=== PATIENT | female | born 1960 | race Caucasian/White ===

== ENCOUNTER 2024-03-09 09:55 | Emergency (ER) | payer OTHER, SELFPAY ==
[2024-03-09 09:57] VITALS: BP 106/61
[2024-03-09] MEDS: ZOFRAN ODT (ORALLY DISINTEGRATING) 4 MG PO (10:06)
[2024-03-09] MEDS: TYLENOL 650 MG PO (10:06)
[2024-03-09 10:14] LABS: % Basophils 0.5 % (0-2); % Eosinophils 0.8 % (0-6); % Immature Granulocytes 0.5 % (0-0.5); % Lymphocytes 14.8 % (20.5-51.1); % Monocytes 4.5 % (1.7-9.3); % Neutrophils 78.9 % (42.2-75.2); Absolute Eosinophils 0.1 10^3/uL (0-0.7); Absolute Lymphocytes 1.3 10^3/uL (1.2-3.4); Absolute Monocytes 0.4 10^3/uL (0.1-0.6); Absolute Neutrophils 6.7 10^3/uL (1.4-6.5); Hemoglobin 13.2 g/dL (12.0-16.0); Mean Corp Hgb Conc. 34.7 g/dL (33.0-37.0); Mean Corpuscular Volume 92.2 fL (81.0-99.0); Mean Platelet Volume 10.9 fL (7.4-10.4); Nucleated Red Blood Cells % 0 %; Platelet Count 234 10^3/uL (130-400); Red Blood Cell Count 4.12 10^6/uL (4.20-5.40); Red Cell Dist. Width 12.6 % (11.5-14.5); White Blood Cell Count 8.5 10^3/uL (4.8-10.8)
[2024-03-09 10:24] LABS: ALT (SGPT) 22 U/L (0-35); AST (SGOT) 28 U/L (14-36); Albumin 4.8 g/dl (3.5-5.0); Alkaline Phosphatase 93 U/L (38-126); Blood Urea Nitrogen 17 mg/dl (7-17); Calcium 9.8 mg/dl (8.4-10.2); Carbon Dioxide 23 mmol/L (22-30); Chloride 104 mmol/L (98-107); Glucose 167 mg/dl (70-99); Potassium 4.7 mmol/L (3.5-5.1); Sodium 137 mmol/L (135-145); Total Bilirubin 0.4 mg/dl (0.2-1.3); eGFR > 60.00
[2024-03-09 10:34] LABS: Lipase 92 U/L (23-300)
--- NOTE | 2024-03-09 11:03 | ED.GENMED ---
History of Present Illness
General
Chief Complaint: Abdominal Symptoms
Source: patient
Exam Limitations: none
Time Seen by Provider: 03/09/24 10:44
Nursing documentation reviewed up to this point in time: agreed with
History of Present Illness
History of Present Illness:
63 y/o F
h/o HLD
says she developed nausea and back pain this morning
she had BM which was normal
then got nauasea/vomit x 1 at home
then realized pain was in L back and LLQ
she has pain with movement
stool was loose
she has never had diverticulitis
no fever/chills, dysuria, hematuria, vascular disease, leg ewakness/numbness or shooting pain in her leg
got zofran and tylenol in waiting room but then vomited immediately
Review of Systems
Review of Systems
Allergies reviewed?: Yes
All Other Systems: Not applicable
Phy Exam
Physical Exam
Physical Exam:
GENERAL: Alert, uncomfortable, a lot of pain with movement
Neck: supple
CARDIAC: Regular rate and rhythm .
LUNGS: Clear breath sounds bilaterally, no acute respiratory distress, no wheezes/rales/rhonchi
ABDOMEN: Soft, normal bowel sounds, nondistended, mild RLQ tenderness, no guarding, no rebound, neg bowling's
moderate L flank tendnress
mild L cva/lumbar spinal tenderness
NEUROLOGICAL: Alert and oriented, no focal neuro eficits, nv intact
SKIN: Warm and dry, skin intact.
PSYCH: Normal and appropriate interaction.
Course
Orders/Labs/Results
Orders:
Orders
03/09/24 10:05
Complete Blood Count/With Diff Urgent
Comprehensive Metabolic Panel Urgent
Lipase Urgent
Acetaminophen [Tylenol] 650 mg .ROUTE .STK-MED ONE
Acetaminophen [Tylenol] 650 mg PO NOW STA
Ondansetron Orally Disint [Zofran Odt (Orally Disintegrating)] 4 mg .ROUTE .STK-MED ONE
03/09/24 10:06
Ondansetron Orally Disint [Zofran Odt (Orally Disintegrating)] 4 mg PO NOW STA
03/09/24 11:16
Acetaminophen [Tylenol] 325 mg PO NOW STA
Iohexol [Omnipaque] See Protocol PO NOW STA
Ondansetron Injectable [Zofran] 4 mg IV NOW STA
03/09/24 11:17
CT Abd/pel W Iv And Oral Contr Urgent
Comment:
Reason For Exam: severe L back pain to LLQ
03/09/24 14:30
Urinalysis Reflex To Culture Urgent
Date Specimen was Collected: 03/09/24
Time Specimen was Collected: 13:21
Urine Microscopic Reflex Cult Urgent
Urine Culture Urgent
SHANIA Source: U
Specimen Description:
Date Specimen was Collected: 03/09/24
Time Specimen was Collected: 13:21
03/09/24 15:56
CefTRIAXone [Rocephin] 1,000 mg IV NOW STA
Ketorolac [Toradol] 30 mg IV NOW STA
Tamsulosin [Flomax] 0.4 mg PO NOW STA
Abnormal Lab Results
03/09/24 03/09/24
10:05 14:30
RBC 4.12 L 10^6/uL
(4.20-5.40)
MCH 32.0 H pg
(27.0-31.0)
MPV 10.9 H fL
(7.4-10.4)
Absolute Neuts (auto) 6.7 H 10^3/uL
(1.4-6.5)
Neutrophils % 78.9 H %
(42.2-75.2)
Lymphocytes % 14.8 L %
(20.5-51.1)
Glucose 167 H mg/dl
(70-99)
Urine Ketones 2+ A
(Negative)
Ur Occult Blood Reflex Trace A
(Negative)
Urine RBC 3-6 A /HPF
(0-2)
Urine Bacteria (Reflex) Many A
(Negative)
03/09/24 10:05
03/09/24 10:05
Vital Signs
Initial and Last Documented VS:
Initial Vital Signs
Pulse Resp BP Pulse Ox
74 18 106/61 98
03/09/24 09:57 03/09/24 09:57 03/09/24 09:57 03/09/24 09:57
Last Documented Vital Signs
Temp Pulse Resp BP Pulse Ox
37.1 C 90 19 125/74 98
03/09/24 11:50 03/09/24 16:10 03/09/24 16:10 03/09/24 16:10 03/09/24 16:10
MDM/Problems Addressed
Differential Diagnosis Includes:
kidney stone, dissection, diverticulitis, bursitis,
MDM/Problems Addressed:
63-year-old female with history of remote kidney stones presents with severe left-sided flank/back pain which radiates to her left lower quadrant. She had a couple of loose bowel movements as well. She has not had any bloody stool, fever or
chills, dysuria. This does not feel like her kidney stone from previously but that was a long time ago. She is no history of diverticulitis. On exam she was very uncomfortable, seem to have pain with movement especially changing position in the
stretcher, palpation of her left lumbar spine laterally not on the midline but SI region posterior hip as well as tenderness in the left lower quadrant and pain moving her leg. She had normal strength and sensation no radicular symptoms down her
leg. She was nauseated and vomited. She was given IV fluids and Zofran and felt much better. She only wanted Tylenol for pain. Her pain improved significantly. Patient's CT shows a 4 mm proximal to mid ureteral stone. Her creatinine was normal
but her urinalysis looked abnormal, could be contaminated but will cover with antibiotics. Patient's pain is controlled and she feels comfortable going home with Flomax and a strainer. She will return if worse
*Critical Care Note
Total Time (30-74mins, 75-104mins- exclusive of procedures): Not Applicable
ED Attending Note
-
Portions of this chart may have been created with voice recognition software.� Occasional wrong word or��sound alike� substitutions may have occurred due to the inherent limitations of voice recognition software.
Discharge Plan
Departure
Patient Disposition: Home (Routine Discharge)
Date of Disposition: 03/09/24
Time of Disposition: 15:57
Patient with high blood pressure during this ER visit?: No
Condition: Fair
Discharge Problem:
Renal calculus, left, Renal cyst
Instructions: Kidney Stones (DC), How to Strain Your Urine
Prescriptions:
New
cefdinir 300 mg capsule
300 mg PO BID Qty: 14 0RF
tamsulosin [Flomax] 0.4 mg capsule
0.4 mg PO DAILY Qty: 14 0RF
ondansetron 4 mg tablet,disintegrating
4 mg PO Q8H PRN (Reason: nausea and vomiting) 2 Days Qty: 6 0RF
Referrals:
Peter Boland MD [Active] - Follow up in 1 week
Antelmo Feliciano MD [Family Provider] - Follow up in 2-3 days
Activity Restrictions/Additional Instructions:
You have a kidney stone on your left side midway through your ureter. It is measuring 4 mm. You should drink plenty of fluids. Take Tylenol and alternate with ibuprofen for pain. If you are nauseous you can use Zofran every 8 hours as needed.
Once a day you should use Flomax until you pass the stone. Each time you urinate pee through the strainer.
We gave you a dose of antibiotics, start the antibiotic prescription tomorrow for twice a day for 7 days.
Have a low threshold for returning for worsening pain, fever or chills, repeated vomiting episodes, not urinating etc. Otherwise follow-up with urology as needed
Interventions
Interventions:
*Risk Screen - Suicide Last Done: 03/09/24 16:10
*General Assessment Last Done: 03/09/24 12:40
*Neglect/Abuse Screening Last Done: 03/09/24 16:10
*Nursing Disposition Last Done: 03/09/24 16:33
MP-Gkaxfs-Ptenyjbckq Assessment Last Done: 03/09/24 11:53
ED-Female Genitourinary Assessment Last Done: 03/09/24 14:34
Discharge Date and Time
Discharge Date/Time: 03/09/24 16:33
Print Language: LATVIAN
[2024-03-09 11:22] VITALS: BMI 20.4
[2024-03-09] MEDS: OMNIPAQUE 50 ML PO (11:46)
[2024-03-09] MEDS: TYLENOL 325 MG PO (11:47)
[2024-03-09] MEDS: ZOFRAN 4 MG IV (11:47)
[2024-03-09 14:34] VITALS: BP 119/65
[2024-03-09 14:54] LABS: Urine Albumin Trace (Neg - Trace); Urine Bilirubin Negative (Negative); Urine Character Clear (Clear); Urine Color Yellow; Urine Glucose Negative (Negative); Urine Ketone 2+ (Negative); Urine Leukocyte Negative (Negative); Urine Nitrite Negative (Negative); Urine Occult Blood Trace (Negative); Urine Specific Gravity 1.015 (<1.030); Urine Urobilinogen Negative (Neg - 1+)
[2024-03-09 15:29] LABS: Urine Squamous Cell 0-2 /LPF (Few); Urine White Cell 0-2 /HPF (0-5)
[2024-03-09 15:30] LABS: Urine Bacteria Many (Negative)
[2024-03-09] MEDS: TORADOL 30 MG IV (16:00)
[2024-03-09] MEDS: FLOMAX 0.4 MG PO (16:00)
[2024-03-09] MEDS: ROCEPHIN 1000 MG IV (16:01)
[2024-03-09 16:10] VITALS: BP 125/74
== END 2024-03-09 16:33 | disposition home or self-care (01) ==
LOC: EMR 09:55
PROVIDERS: Physician Assistant; EMERGENCY PHYSICIAN Emergency Medicine; FAMILY PHYSICIAN Family Medicine
DX: N20.2 Calculus of kidney with calculus of ureter (principal); N28.1 Cyst of kidney, acquired; E78.5 Hyperlipidemia, unspecified
CPT/HCPCS: 99284; 96374; 96375; 74177; 80053; 81003; 81015; 83690; 85025; 87086; Q9967

== ENCOUNTER 2024-03-11 03:50 | Inpatient (IN) | payer OTHER, SELFPAY ==
[2024-03-10 22:44] VITALS: BP 136/57
[2024-03-10 22:58] LABS: % Basophils 0.2 % (0-2); % Eosinophils 0.2 % (0-6); % Immature Granulocytes 0.2 % (0-0.5); % Lymphocytes 5.4 % (20.5-51.1); % Monocytes 6.5 % (1.7-9.3); % Neutrophils 87.5 % (42.2-75.2); Absolute Lymphocytes 0.7 10^3/uL (1.2-3.4); Absolute Monocytes 0.8 10^3/uL (0.1-0.6); Absolute Neutrophils 11.1 10^3/uL (1.4-6.5); Hematocrit 33.3 % (37.0-47.0); Hemoglobin 12.1 g/dL (12.0-16.0); Mean Corp Hgb Conc. 36.3 g/dL (33.0-37.0); Mean Corpuscular Volume 88.1 fL (81.0-99.0); Mean Platelet Volume 10.8 fL (7.4-10.4); Nucleated Red Blood Cells % 0 %; Platelet Count 184 10^3/uL (130-400); Red Blood Cell Count 3.78 10^6/uL (4.20-5.40); White Blood Cell Count 12.7 10^3/uL (4.8-10.8)
[2024-03-10 23:17] LABS: ALT (SGPT) 21 U/L (0-35); AST (SGOT) 27 U/L (14-36); Albumin 4.4 g/dl (3.5-5.0); Alkaline Phosphatase 78 U/L (38-126); Blood Urea Nitrogen 12 mg/dl (7-17); Calcium 8.8 mg/dl (8.4-10.2); Carbon Dioxide 22 mmol/L (22-30); Chloride 85 mmol/L (98-107); Glucose 155 mg/dl (70-99); Potassium 4.1 mmol/L (3.5-5.1); Sodium 118 mmol/L (135-145); Total Bilirubin 1.3 mg/dl (0.2-1.3); Total Protein 6.5 g/dl (6.3-8.2); eGFR > 60.00
[2024-03-11] VITALS (16 sets, daily range): BP systolic 91–130; BP diastolic 51–76; PULSE 96–111; BMI 22.6; BMI 21.7
--- NOTE | 2024-03-11 00:36 | ED.GENMED ---
History of Present Illness
General
Chief Complaint: Flank Pain
Source: patient
Exam Limitations: none
Time Seen by Provider: 03/11/24 00:27
Nursing documentation reviewed up to this point in time: agreed with
History of Present Illness
History of Present Illness:
Patient diagnosed with obstructing kidney stone yesterday, presents to ED secondary to continual pain along with nausea sensation, associated with decreased appetite. Denies fever or chills. Denies inability to urinate. Denies chest pain or
shortness of breath.
Review of Systems
Review of Systems
Allergies reviewed?: Yes
All Other Systems: ROS reviewed and negative except as documented in HPI and ROS
Constitutional: Reports no symptoms
EENT: Reports no symptoms
Respiratory: Reports no symptoms; Denies trouble breathing
ABD/GI: Reports abdominal pain and nausea; Denies vomiting or diarrhea
: Reports no symptoms; Denies frequency or difficulty voiding
Musculoskeletal: Reports no symptoms
Skin: Reports no symptoms
Neurological: Reports no symptoms
Phy Exam
Physical Exam
Physical Exam:
Physical Exam
General: mild painful distress, not acutely ill. afebrile
Head: nc/at. eomi
Neck: supple. normal range of motion
Abdomen: normal bowel sounds. not tender. no distention
Neuro: alert and oriented x 3. no focal neurological deficits
Skin: no rash
Psychiatric: well kept. interactive and cooperative
Extremities: no edema. no calf tenderness.
Course
Orders/Labs/Results
Orders:
Orders
03/10/24 22:53
CMP [Comprehensive Metabolic Panel] Urgent
Complete Blood Count/With Diff Urgent
03/11/24 00:10
EKG [Electrocardiogram (*1)] Urgent
Reason for Study: Abdominal Pain
Other Reason for Exam: has feeling of indigestion
03/11/24 00:11
EKG- Treatment ONCE
03/11/24 00:35
0.9% Sodium Chloride 500 ml [Nss] 500 ml IV BOLUS
03/11/24 00:36
0.9% Sodium Chloride 500 ml [Nss] 500 ml IV BOLUS
Ketorolac [Toradol] 15 mg IV NOW STA
Ondansetron Injectable [Zofran] 4 mg IV NOW STA
03/11/24 00:42
Basic Metabolic Panel Urgent
03/11/24 01:28
HYDROmorphone [Dilaudid] 0.5 mg .ROUTE .STK-MED ONE
03/11/24 01:29
HYDROmorphone [Dilaudid] 0.5 mg IV NOW STA
03/11/24 01:37
Urinalysis Reflex To Culture Urgent
Date Specimen was Collected: 03/11/24
Time Specimen was Collected: 01:36
03/11/24 01:47
0.9% Sodium Chloride 500 ml [Nss] 500 ml IV BOLUS
03/11/24 03:26
Osmolality, Random Urine Urgent
Urine Sodium Urgent
03/11/24 03:27
Admit/Transfer Patient As Directed
Co-Sign Provider:
Level of Care: Inpatient admission
Assign to:: Telemetry
Physician / Group: Yao
Diagnosis: Hyponatremia, Kidney Stone
Reason for Telemetry: Arrhythmia
Date to Stop Telemetry: 03/14/24
Time to Stop Telemetry: 11:00
Reason for Hospitalization: Hyponatremia, Kidney Stone
Expected length of stay greater than two midnights?: Yes
ELOS- Estimated Length of Stay in days: 3
I certify the patient meets the requirements for IP care: Yes
Code Status As Directed
Resuscitation Status: Full Code
PRN Pain Medication Management As Directed
May give lesser potent ordered pain med per pt: Yes
preference::
Protocol:: Medication orders for pain may be administered in a
manner that supports deferring to patient preference
when the pt is:
- Requesting an ordered lesser potent pain medication.
Least to most potent pain medications are defined
as: acetaminophen < NSAID < tramadol < opioids
(morphine, oxycodone, hydromorphone).
- Requesting a lesser dose of the same medication IF
ORDERED.
- Requesting a less intrusive route of administration
if both routes are prescribed by the provider (PO <
IV).
03/11/24 03:30
3% Sodium Chloride 250 ml [Sodium Chloride 3%] 250 ml IV ONCE
03/11/24 05:59
Sodium Q4H
Acetaminophen [Tylenol] 650 mg PO Q4HPRN PRN
CefTRIAXone [Rocephin] 1,000 mg IV Q24H
HYDROmorphone [Dilaudid] 0.5 mg IV Q4HPRN PRN
Ondansetron Injectable [Zofran] 4 mg IV Q6HPRN PRN
03/11/24 05:59
Consult Notification Routine
Specialty to Notify: Nephrology
NEPHROLOGY CONSULT Routine
Consulting Provider: Vance Manley
Was physician already notified: No
Reason for consult: Hyponatremia
UROLOGY CONSULT Routine
Consulting Provider: Dung Ureña
Was physician already notified: Yes
Comment: Ureteral Stone
TSH Reflex To Free T4 Routine
Activity As Directed
Activity Level: Ambulate
With Assistance
EKG with chest pain [ECG as needed] As Directed
ECG as needed for:: Chest Pain
I/O [Intake/ Output] As Directed
Frequency: Per unit guidelines
Orthostatic Vital Signs As Directed
Orthostatic VS Frequency: BID
Pneumatic Compression Sleeves As Directed
Type: Knee high
Strain Urine As Directed
Vital Signs As Directed
Frequency: Per unit guidelines
Weight As Directed
Frequency: Daily
Oxygen Therapy [O2 Therapy] [RESP] Routine
Titrate/Wean O2 to maintain O2 sat greater than (%): 94
DX Deep Vein Thrombosis Video Routine
03/11/24 Breakfast
NPO
Allow oral meds: Yes
Allow clear liquids: Sips of Clears
Complete Blood Count/No Diff IN AM
03/11/24 08:00
Pantoprazole [Protonix IV] 40 mg IV DAILY
Tamsulosin [Flomax] 0.4 mg PO DAILY
03/11/24 09:59
Sodium Q4H
03/11/24 13:59
Sodium Q4H
03/11/24 17:59
Sodium Q4H
03/11/24 21:59
Sodium Q4H
03/12/24 01:59
Sodium Q4H
03/14/24 11:00
DC Protocol for Telemetry ONCE
Abnormal Lab Results
03/10/24 03/11/24
22:53 00:42
WBC 12.7 H 10^3/uL
(4.8-10.8)
RBC 3.78 L 10^6/uL
(4.20-5.40)
Hct 33.3 L %
(37.0-47.0)
MCH 32.0 H pg
(27.0-31.0)
MPV 10.8 H fL
(7.4-10.4)
Absolute Neuts (auto) 11.1 H 10^3/uL
(1.4-6.5)
Absolute Lymphs (auto) 0.7 L 10^3/uL
(1.2-3.4)
Absolute Monos (auto) 0.8 H 10^3/uL
(0.1-0.6)
Neutrophils % 87.5 H %
(42.2-75.2)
Lymphocytes % 5.4 L %
(20.5-51.1)
Sodium 118 L* D mmol/L 118 L* mmol/L
(135-145) (135-145)
Chloride 85 L mmol/L 84 L mmol/L
(98-107) (98-107)
Glucose 155 H mg/dl 144 H mg/dl
(70-99) (70-99)
03/10/24 22:53
03/11/24 00:42
Vital Signs
Initial and Last Documented VS:
Initial Vital Signs
Temp Pulse Resp BP Pulse Ox
98.5 F 94 16 136/57 98
03/10/24 22:44 03/10/24 22:44 03/10/24 22:44 03/10/24 22:44 03/10/24 22:44
Last Documented Vital Signs
Temp Pulse Resp BP Pulse Ox
98.7 F 96 18 121/64 96
03/11/24 06:12 03/11/24 06:12 03/11/24 06:12 03/11/24 06:12 03/11/24 06:12
MDM/Problems Addressed
MDM/Problems Addressed:
History and exam consistent with symptoms related to renal colic. However, unfortunately, is likely secondary to poor oral intake, patient found to be hyponatremic. Patient will be admitted for further evaluation, including pain control along with
hydration.
Dr. Ureña, on-call urology, notified via [place] text.
*Critical Care Note
Total Time (30-74mins, 75-104mins- exclusive of procedures): Not Applicable
ED Attending Note
-
Portions of this chart may have been created with voice recognition software.� Occasional wrong word or��sound alike� substitutions may have occurred due to the inherent limitations of voice recognition software.
Discharge Plan
Departure
Patient Disposition: Admit
Date of Disposition: 03/11/24
Time of Disposition: 02:18
Admit to: Med/Surg
Presentation/result/management discussed w/ accepting MD/DO: Hospitalist
Discharge Problem:
Renal colic, Hyponatremia
Interventions
Interventions:
*Risk Screen - Suicide Last Done: 03/10/24 22:44
*General Assessment Last Done: 03/10/24 22:44
*Neglect/Abuse Screening Last Done: 03/10/24 22:44
ED- Fall Risk Assessment Last Done: 03/11/24 00:38
*ED COVID-19 Vaccine History Last Done: 03/10/24 22:44
*Nursing Disposition Last Done: 03/11/24 06:07
MY-Uwkbpd-Tgajbjrsor Assessment Last Done: 03/11/24 00:38
ED-Female Genitourinary Assessment Last Done: 03/11/24 00:38
Discharge Date and Time
Discharge Date/Time: 03/11/24 06:10
[2024-03-11] MEDS: NSS 500 IV ×2 (00:46→02:17)
[2024-03-11] MEDS: TORADOL 15 MG IV (00:46)
[2024-03-11] MEDS: ZOFRAN 4 MG IV (00:47)
[2024-03-11] MEDS: DILAUDID 0.5 MG IV ×3 (01:30→21:36)
[2024-03-11 01:34] LABS: Blood Urea Nitrogen 11 mg/dl (7-17); Carbon Dioxide 24 mmol/L (22-30); Chloride 84 mmol/L (98-107); Estimated Creatinine Clearance 42 ml/min; Glucose 144 mg/dl (70-99); Potassium 4.1 mmol/L (3.5-5.1); Sodium 118 mmol/L (135-145); eGFR > 60.00
[2024-03-11 01:43] LABS: Urine Albumin Negative (Neg - Trace); Urine Bilirubin Negative (Negative); Urine Character Clear (Clear); Urine Color Yellow; Urine Glucose Negative (Negative); Urine Ketone Negative (Negative); Urine Leukocyte Negative (Negative); Urine Nitrite Negative (Negative); Urine Occult Blood Negative (Negative); Urine Urobilinogen Negative (Neg - 1+)
--- NOTE | 2024-03-11 03:32 | HPS.HSE ---
Family Physician
-
Family Physician: Antelmo Feliciano
Chief Complaint
-
Pain, N/V
History of Present Illness
Patient is a 63y F with PMH significant for GERD, dyslipidemia and anxiety who presents to ED complaining of flank pain, abdominal pain and N/V. Patient notes that she developed severe back pain on 03/09 followed by multiple episodes of
non-bloody emesis. She presented to the ED at that time and CT A/P was done which showed obstructing L ureteral stone. Patient felt improved in the ED and was discharged to home with abx and tamsulosin. She states that the pain returned shortly
thereafter. She had poor appetite due to the pain. Patient returned to the ED this evening with continued / worsening symptoms.
Medical History
Past Medical History
Past Medical History: Reports Other
Additional Past Medical History:
Dyslipidemia
Anxiety / Depression
GERD
Non-Melanoma Skin Cancer
Past Surgical History: Reports Other
Additional Past Surgical History:
Mohs surgery
Ovarian Cystectomy
x 2
Social History
Tobacco: Non-smoker
Alcohol: Occasional
Family History
Family History: Not pertinent
Allergies / Home Medications
Allergies reflects when Allergies were last updated in [employer].
Home Medications with original date entered in [employer]
Allergy/Medication List:
Allergies
Allergy/AdvReac Type Severity Reaction Status Date / Time
penicillin G Allergy Unknown Verified 03/09/24 12:41
Penicillins Allergy Unknown Verified 03/09/24 12:41
Home Medications
cefdinir 300 mg capsule 300 mg PO BID #14 caps 03/09/24
ondansetron 4 mg disintegrating tablet 4 mg PO Q8H PRN nausea and vomiting 2 days #6 tabs 03/09/24
tamsulosin 0.4 mg capsule (Flomax) 0.4 mg PO DAILY #14 caps 03/09/24
escitalopram oxalate 10 mg tablet (Lexapro) 10 mg PO DAILY 03/11/24
pravastatin 40 mg tablet 40 mg PO DAILY 03/11/24
Review of Systems
-
History Source: Patient
A 12 point ROS was completed and negative except as noted: Yes
Constitutional: Reports Fatigue; Denies Fever or Chills
Respiratory: Denies Cough or Trouble Breathing
Cardiac: Denies Chest Pain or Palpitations
Abdomen/GI: Reports Abdominal Pain, Nausea and Vomiting; Denies Diarrhea, Constipated, Bloody Stools or Black Stools
: Reports Flank Pain; Denies Dysuria, Frequency or Bleeding
Neurological: Denies Dizzy or Headache
Psych: Denies Depression or Anxiety
Physical Exam
Vital Signs
Vital Signs
Temp Pulse Resp BP Pulse Ox
99.2 F 90 16 119/73 98
03/11/24 00:37 03/11/24 02:18 03/11/24 02:18 03/11/24 02:18 03/11/24 02:18
Physical Exam
General: Other (63y F in no acute distress.)
HEENT: Moist mucous membranes and PERRLA
Respiratory: Clear; No Wheezes, Rales or Rhonchi
Cardiac: S1/S2 and Regular Rhythm; No Murmur
GI: Soft, Non Distended and Other (Lower abdominal tenderness with voluntary guarding. Pos BS.)
Genito-urinary: Costovertebral angle tend
Musculoskeletal: No Clubbing, No Cyanosis and No Edema
Neuro: AO x 3
Laboratory Results
-
03/10/24 22:53
03/11/24 00:42
Laboratory Results
Total Bilirubin 1.3 mg/dl (0.2-1.3) 03/10/24 22:53
AST 27 U/L (14-36) 03/10/24 22:53
ALT 21 U/L (0-35) 03/10/24 22:53
Alkaline Phosphatase 78 U/L (38-126) 03/10/24 22:53
Impression/Plan
-
A/P: Patient is a 63y F with PMH significant for dyslipidemia and anxiety who presents to ED complaining of persistent / worsened pain and N/V after recently diagnosed ureteral stone.
Left Ureteral Stone
Intractable Pain and N/V secondary to the above
- Admit for further evaluation and treatment.
- Continue abx with IV ceftriaxone for now.
- Pain control and supportive care.
- Continue tamsulosin and strain urine.
- Urology evaluation for additional recommendations / possible intervention.
Hyponatremia
- Significant / acute hyponatremia with Na 137 on 03/09 and now 118 (on repeat tests).
- Seems very likely due to ADH release due to uncontrolled pain and nausea.
- Slow 3% saline given significant change from prior.
- NPO for now - but fluid restriction once able to take POs.
- Address underlying pain and nausea.
- Check urine studies.
- Follow serial sodium levels and adjust treatment as needed.
- Nephrology evaluation for additional recommendations.
Dyslipidemia
Anxiety / Depression
- Hold usual PO medications acutely.
DVT Prophylaxis: SCDs
Code Status: Full
[2024-03-11] MEDS: SODIUM CHLORIDE 3% 250 IV (04:48)
--- NOTE | 2024-03-11 06:15 | PTCARENOTE ---
Received patient from ED via stretcher accompanied by ED RN, ambulated to bed with x1 assist, generally weak on feet. Nursing assessment as documented. Instructed use of call [place] and within reach, safe environment maintained, VSS.
[2024-03-11 06:40] LABS: Hematocrit 31.6 % (37.0-47.0); Hemoglobin 11.7 g/dL (12.0-16.0); Mean Corpuscular Hgb 32.5 pg (27.0-31.0); Mean Corpuscular Volume 87.8 fL (81.0-99.0); Mean Platelet Volume 11.1 fL (7.4-10.4); Platelet Count 189 10^3/uL (130-400); Red Cell Dist. Width 11.9 % (11.5-14.5); White Blood Cell Count 11.8 10^3/uL (4.8-10.8)
[2024-03-11 07:06] LABS: Sodium 124 mmol/L (135-145)
[2024-03-11 07:37] LABS: TSH Reflex To Free T4 1.45 uIU/ml (0.47-4.68)
--- NOTE | 2024-03-11 08:02 | CONS.URO ---
Consultation
-
Date/Time Consultation Requested: 03/11/24 0330
Date/Time Consultation Performed: 03/11/24 0700
Requesting Provider: ED
Performing Provider: Niranjan
Reason for Consultation: ureteral stone
Medical History
History of Present Illness
Patient developed severe back pain on 03/09 followed by multiple episodes emesis. She presented to the ED; CT A/P was done which showed obstructing L ureteral stone. Patient felt improved in the ED and was discharged to home with abx and
tamsulosin. Pain returned. She had poor appetite due to the pain. Patient returned to the ED this evening with continued / worsening symptoms.
Past Medical History
Past Medical History: None (Dyslipidemia Anxiety / Depression GERD Non-Melanoma Skin Cancer )
Past Surgical History: Other ( Mohs 'surgery'; Ovarian Cystectomy; x 2)
Allergies/Home Medications
Allergies
Allergy/AdvReac Type Severity Reaction Status Date / Time
penicillin G Allergy Unknown Verified 03/09/24 12:41
Penicillins Allergy Unknown Verified 03/09/24 12:41
Home Medications
�Medication �Instructions �Recorded �Confirmed �Type
cefdinir 300 mg capsule 300 mg PO BID #14 caps 03/09/24 03/11/24 Rx
ondansetron 4 mg disintegrating 4 mg PO Q8H PRN nausea and 03/09/24 03/11/24 Rx
tablet vomiting 2 days #6 tabs
tamsulosin 0.4 mg capsule (Flomax) 0.4 mg PO DAILY #14 caps 03/09/24 03/11/24 Rx
escitalopram oxalate 10 mg tablet 10 mg PO DAILY 03/11/24 03/11/24 History
(Lexapro)
pravastatin 40 mg tablet 40 mg PO DAILY 03/11/24 03/11/24 History
Physical Exam
Vital Signs
Vital Signs
Temp Pulse Resp BP Pulse Ox
98.4 F 93 14 114/67 94
03/11/24 07:20 03/11/24 07:20 03/11/24 07:20 03/11/24 07:20 03/11/24 07:20
Lab / Testing Results
Laboratory Results
03/11/24 06:28
Assessment / Plan
-
Left Ureteral Stone: ~ 4 mm, mid; numerous renal stones L >> R; Renal Cysts
Hyponatremia
Based on size and position, stone is likely to pass -- patient states that she would like to avoid surgery
Rec: trial of stone passage
Data Reviewed
-
CT Scan: Image personally visualized and interpreted
Lab Data: Labs Reviewed
Old Records: Reviewed
[2024-03-11] MEDS: PROTONIX IV 40 MG IV (08:33)
[2024-03-11] MEDS: FLOMAX 0.4 MG PO (08:33)
[2024-03-11] MEDS: STERILE WATER FOR INJECTION 10 ML IV (08:33)
[2024-03-11] MEDS: ROCEPHIN 1000 MG IV (08:33)
[2024-03-11] MEDS: NSS (PRESERVATIVE FREE) 10 ML IV (08:34)
--- NOTE | 2024-03-11 09:02 | W.PN.HOSP.TC ---
Today's Communication/Plan
-
confirming with Dr. Ureña OK to give diet
pause 3% while awaiting next Na
F/U further renal recs
awaiting urine studies
Assessment / Plan
Assessment / Plan
A/P: Patient is a 63y F with PMH significant for dyslipidemia and anxiety who presents to ED complaining of persistent / worsened pain and N/V after a recently diagnosed ureteral stone.
CT A/P
IMPRESSION:
0.4 cm partially obstructing calculus in the proximal to mid left ureter. Small nonobstructing left renal calculi.
Left Ureteral Stone
Intractable Pain and N/V secondary to the above
- appreciate Urology - trial of passage based on size and position, stone is likely to pass
- Continue tamsulosin and strain urine.
- UA clear, will stop antibiotics
- Pain control
Hyponatremia
- Significant / acute hyponatremia with Na 137 on 03/09 and now 118 (on repeat tests).
- Seems very likely due to ADH release due to uncontrolled pain and nausea.
- Slow 3% saline given significant change from prior. Na increased from 118 to 124 over 6 hours - holding 3% for now until repeat - updated Renal
- Fluid restriction once able to take POs.
- Address underlying pain and nausea.
- Check urine studies - pending
- Nephrology consult
Dyslipidemia
Anxiety / Depression
- Hold usual PO medications acutely.
DVT Prophylaxis: SCDs
Code Status: Full
Anticipated Discharge: 24 - 48 hours
Subjective/Interval History
-
Date of Service: March 11, 2024
+ flank pain, has not passed stone yet
she had vomiting and loose stools at home, now feels constipated
Objective Data
-
Labs:
Laboratory Results
03/10/24 03/11/24 03/11/24
22:53 00:42 06:28
WBC 12.7 H 11.8 H
Hgb 12.1 11.7 L
Hct 33.3 L 31.6 L
Plt Count 184 D 189
Sodium 118 L* D 118 L* 124 L
Potassium 4.1 4.1
Chloride 85 L 84 L
Carbon Dioxide 22 24
BUN 12 11
Creatinine 1.0 1.0
Glucose 155 H 144 H
Calcium 8.8 9.0
Total Bilirubin 1.3
AST 27
ALT 21
Alkaline Phosphatase 78
03/11/24 03/11/24 03/11/24
09:59 13:59 17:59
WBC
Hgb
Hct
Plt Count
Sodium Pending Pending Pending
Potassium
Chloride
Carbon Dioxide
BUN
Creatinine
Glucose
Calcium
Total Bilirubin
AST
ALT
Alkaline Phosphatase
03/11/24
21:59
WBC
Hgb
Hct
Plt Count
Sodium Pending
Potassium
Chloride
Carbon Dioxide
BUN
Creatinine
Glucose
Calcium
Total Bilirubin
AST
ALT
Alkaline Phosphatase
Vital Signs:
Vital Signs
Temp Pulse Resp BP Pulse Ox
98.4 F 93 14 114/67 94
03/11/24 07:20 03/11/24 07:20 03/11/24 07:20 03/11/24 07:20 03/11/24 07:20
I&O
03/10/24 03/11/24 03/12/24
06:59 06:59 06:59
Intake Total 500 / 500
Output Total 350 / 350
Balance 150 / 150
Review of Systems
-
History Source: Patient
All other systems: Reviewed and negative
Physical Exam
-
General: No Apparent Distress
HEENT: PERRLA
Respiratory: Clear to Auscultation; Negative Wheezes
Cardiac: Regular Rhythm and S1/S2
GI: Soft and Nontender
Musculoskeletal: No Edema
Skin: Warm and Dry; Negative Rash
Neuro: AO x 3
Psych: Calm
Data Reviewed
-
Diagnostic Radiology: Report Reviewed by me
Labs: Labs Reviewed by me
[2024-03-11 09:24] LABS: Osmolality Urine 200 mOsm/kg (300-900)
[2024-03-11 09:40] LABS: Urine Sodium 15 mmol/L (30-90)
[2024-03-11 10:29] LABS: Sodium 126 mmol/L (135-145)
[2024-03-11 14:33] LABS: Sodium 127 mmol/L (135-145)
--- NOTE | 2024-03-11 15:32 | CM ---
CM reviewed medical records. Patient live independently. No history of VN, SNF or DME. Patient is active with her PCP.
PLAN: Home no needs.
--- NOTE | 2024-03-11 15:37 | W.CON.NEPH ---
Consultation
-
Date/Time Consultation Requested: 03/11/2024 9 AM
Date/Time Consultation Performed: 03/11/2024 2 PM
Requesting Provider: Dr. Jordan
Performing Provider: Dr. Davis
Reason for Consultation: Hyponatremia
Medical History
-
Chief Complaint: Flank pain nausea vomiting
History of Present Illness:
This is a 63-year-old female who has hyperlipidemia on statin therapy, nephrolithiasis. She was in the emergency room on 03/09/2024 with nausea vomiting and flank pain. CT scan had shown a obstructive left ureteral stone. She was started on
antibiotics and given Flomax and discharged. Unfortunately she did not improve nor did she passed the stone and had return to the emergency room. She was then admitted for management. Blood work had shown hyponatremia with a sodium level of 118.
She was given hypertonic saline but this was discontinued with an increase of her sodium level up to 126 overnight.
Past Medical History
Hyperlipidemia, anxiety, GERD, skin cancer, nephrolithiasis, Mohs surgery, ovarian cystectomy, x 2
Social History
Tobacco: Non-Smoker
Alcohol: Occasional
Family History
Family History: Not Pertinent
Allergies / Home Medications
Allergy/AdvReac Type Severity Reaction Status Date / Time
penicillin G Allergy Unknown Verified 03/09/24 12:41
Penicillins Allergy Unknown Verified 03/09/24 12:41
�Medication �Instructions �Recorded �Confirmed �Type
cefdinir 300 mg capsule 300 mg PO BID #14 caps 03/09/24 03/11/24 Rx
ondansetron 4 mg disintegrating 4 mg PO Q8H PRN nausea and 03/09/24 03/11/24 Rx
tablet vomiting 2 days #6 tabs
tamsulosin 0.4 mg capsule (Flomax) 0.4 mg PO DAILY #14 caps 03/09/24 03/11/24 Rx
escitalopram oxalate 10 mg tablet 10 mg PO DAILY 03/11/24 03/11/24 History
(Lexapro)
pravastatin 40 mg tablet 40 mg PO DAILY 03/11/24 03/11/24 History
Review of Systems
-
Left-sided abdominal pain, nausea
All other systems: Negative unless noted
Physical Exam
Vital Signs
Vital Signs
Temp Pulse Resp BP Pulse Ox
98.2 F 93 14 110/65 97
03/11/24 15:18 03/11/24 15:18 03/11/24 15:18 03/11/24 15:18 03/11/24 15:18
Lab Results
WBC 11.8 10^3/uL (4.8-10.8) H 03/11/24 06:28
RBC 3.60 10^6/uL (4.20-5.40) L 03/11/24 06:28
Hgb 11.7 g/dL (12.0-16.0) L 03/11/24 06:28
Hct 31.6 % (37.0-47.0) L 03/11/24 06:28
Plt Count 189 10^3/uL (130-400) 03/11/24 06:28
Potassium 4.1 mmol/L (3.5-5.1) 03/11/24 00:42
Chloride 84 mmol/L (98-107) L 03/11/24 00:42
Carbon Dioxide 24 mmol/L (22-30) 03/11/24 00:42
BUN 11 mg/dl (7-17) 03/11/24 00:42
Creatinine 1.0 mg/dL (0.6-1.0) 03/11/24 00:42
eGFR > 60.00 03/11/24 00:42
Glucose 144 mg/dl (70-99) H 03/11/24 00:42
Calcium 9.0 mg/dl (8.4-10.2) 03/11/24 00:42
Albumin 4.4 g/dl (3.5-5.0) 03/10/24 22:53
Laboratory Tests
03/11/24
08:26
Urine Osmolality 200 L
Urine Sodium [address] abdomen and pelvis without contrast:
IMPRESSION:
0.4 cm partially obstructing calculus in the proximal to mid left ureter. Small nonobstructing left renal calculi.
.
Markedly limited evaluation of intestinal tract with all administered oral contrast seen within mildly dilated stomach and unremarkable proximal to mid small bowel. Distal small bowel and entire large bowel not opacified with oral contrast. Majority
of descending colon and sigmoid virtually completely empty, cannot exclude some mild wall thickening such as colitis. No intestinal obstruction or free air.
Simple left renal cyst and subcentimeter low-attenuation right renal lesion too small to characterize.
Physical Exam
Patient is awake alert oriented and in no distress. Mood and affect were pleasant, insight and judgment were good. Pupils are equal round and reactive to light, extraocular movements are intact, sclera were anicteric. Hearing was normal, ears and
nose are intact. Oropharynx was clear. Neck was supple with trachea midline and no thyromegaly. Heart was regular rate and rhythm without rubs. Lower extremities without edema. Lungs were clear to auscultation bilaterally and with normal
excursion. Abdomen was soft, tender on the left side, with normal active bowel sounds, and no hepatosplenomegaly. Skin was without rash and with normal turgor.
Data Reviewed
-
CT Scan: Report Reviewed by me
Medical Tests (Nuc Med, Echo etc): Image Personally Visualized and interpreted (EKG on 03/11/2024 by my reading shows normal sinus rhythm incomplete right bundle branch block)
Labs: Labs Reviewed by me
Old Records: Reviewed
Assessment/Plan
-
Assessment
Hyponatremia
Nephrolithiasis
Left obstructive uropathy
Nausea vomiting
Hyperlipidemia
Plan
Urine studies would suggest volume depleted state resulting in hyponatremia, not excess ADH
Will offer normal saline fluids at this time
Check BMP again this evening
Maintain fluid restriction at this time
Continue Flomax
[2024-03-11] MEDS: NSS 1000 IV (15:50)
[2024-03-11 20:50] LABS: Blood Urea Nitrogen 10 mg/dl (7-17); Calcium 8.6 mg/dl (8.4-10.2); Carbon Dioxide 24 mmol/L (22-30); Chloride 100 mmol/L (98-107); Estimated Creatinine Clearance 42 ml/min; Glucose 132 mg/dl (70-99); Potassium 4.1 mmol/L (3.5-5.1); Sodium 131 mmol/L (135-145); eGFR > 60.00
[2024-03-12 03:21] VITALS: BP 127/73
[2024-03-12 05:02] VITALS: BMI 21.2
[2024-03-12] MEDS: NSS 1000 IV (05:02)
[2024-03-12 07:00] VITALS: BP 118/74
[2024-03-12] MEDS: FLOMAX 0.4 MG PO (07:59)
[2024-03-12] MEDS: SENOKOT 8.6 MG PO (07:59)
[2024-03-12] MEDS: PROTONIX IV IV (08:00)
[2024-03-12] MEDS: NSS (PRESERVATIVE FREE) IV (08:00)
[2024-03-12] MEDS: STERILE WATER FOR INJECTION IV (08:01)
[2024-03-12] MEDS: NSS (PRESERVATIVE FREE) 10 ML IV (08:01)
[2024-03-12 08:12] LABS: Hematocrit 33.5 % (37.0-47.0); Hemoglobin 11.7 g/dL (12.0-16.0); Mean Corp Hgb Conc. 34.9 g/dL (33.0-37.0); Mean Corpuscular Volume 91.5 fL (81.0-99.0); Mean Platelet Volume 10.8 fL (7.4-10.4); Platelet Count 181 10^3/uL (130-400); Red Blood Cell Count 3.66 10^6/uL (4.20-5.40); Red Cell Dist. Width 12.7 % (11.5-14.5); White Blood Cell Count 9.2 10^3/uL (4.8-10.8)
[2024-03-12 08:48] LABS: Blood Urea Nitrogen 7 mg/dl (7-17); Calcium 8.9 mg/dl (8.4-10.2); Carbon Dioxide 24 mmol/L (22-30); Chloride 103 mmol/L (98-107); Estimated Creatinine Clearance 42 ml/min; Glucose 109 mg/dl (70-99); Potassium 3.9 mmol/L (3.5-5.1); Sodium 136 mmol/L (135-145); eGFR > 60.00
--- NOTE | 2024-03-12 09:02 | W.PN.HOSP.TC ---
Today's Communication/Plan
-
see plan
Assessment / Plan
Assessment / Plan
A/P: Patient is a 63y F with PMH significant for dyslipidemia and anxiety who presents to ED complaining of persistent / worsened pain and N/V after a recently diagnosed ureteral stone.
CT A/P
IMPRESSION:
0.4 cm partially obstructing calculus in the proximal to mid left ureter. Small nonobstructing left renal calculi.
Left Ureteral Stone
Intractable Pain and N/V secondary to the above
- appreciate Urology - trial of passage based on size and position, stone is likely to pass
- Continue tamsulosin and strain urine.
- UA clear, will stop antibiotics
- Pain control
Hyponatremia
- Significant / acute hyponatremia with Na 137 on 03/09 and now 118 (on repeat tests).
- urine studies showed dilute urine
- Na jose e appropriate rate
- now on IVF to help with passage of stone
Dyslipidemia
Anxiety / Depression
- resume [employer] Lexapro
DVT Prophylaxis: SCDs
Code Status: Full
Anticipated Discharge: 24 - 48 hours
Subjective/Interval History
-
Date of Service: March 12, 2024
feels constipated, just took senna
Objective Data
-
Labs:
Laboratory Results
03/12/24
07:56
WBC 9.2
Hgb 11.7 L
Hct 33.5 L
Plt Count 181
Sodium 136
Potassium 3.9
Chloride 103
Carbon Dioxide 24
BUN 7
Creatinine 1.0
Glucose 109 H
Calcium 8.9
Vital Signs:
Vital Signs
Temp Pulse Resp BP Pulse Ox
98.0 F 103 18 118/74 99
03/12/24 07:00 03/12/24 07:00 03/12/24 07:00 03/12/24 07:00 03/12/24 07:00
I&O
03/11/24 03/12/24 03/13/24
06:59 06:59 06:59
Intake Total 500 / 500 1500 / 1500
Output Total 350 / 350 1950 / 1950
Balance 150 / 150 -450 / -450
Review of Systems
-
History Source: Patient
All other systems: Reviewed and negative
Physical Exam
-
General: No Apparent Distress
HEENT: PERRLA
Respiratory: Clear to Auscultation; Negative Wheezes
Cardiac: Regular Rhythm and S1/S2
GI: Soft and Nontender
Musculoskeletal: No Edema
Skin: Warm and Dry; Negative Rash
Neuro: AO x 3
Psych: Calm
Data Reviewed
-
Diagnostic Radiology: Report Reviewed by me
Labs: Labs Reviewed by me
--- NOTE | 2024-03-12 10:19 | W.DS.TRANS ---
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
-
Discharge Instructions:
Discharge Diagnosis/Procedures Renal Calculus, Hyponatremia
Diet Regular
Activity As tolerated
Driving Restrictions As prior to admission
Instructions:
Stand-Alone Forms:
Changes to Home Medications: Yes
Discharge Medications:
DC Medications w/original date entered in [employer]
ondansetron 4 mg disintegrating tablet 4 mg PO Q8H PRN nausea and vomiting 2 days #6 tabs 03/09/24
escitalopram oxalate 10 mg tablet (Lexapro) 10 mg PO DAILY Mental Health/Anxiety 03/11/24
pravastatin 40 mg tablet 40 mg PO DAILY High Cholesterol 03/11/24
Home Medication Changes
stop Cefdinir and Flomax
Pending Results: Yes
Additional Pending Results:
renal calculus analysis
--- NOTE | 2024-03-12 11:07 | PTCARENOTE ---
[place] text to Tonya Jordan that patient appears to have passed stone. Stone is in urine strainer in bathroom. Pt continues to be pain free this shift, vitals stable.
--- NOTE | 2024-03-12 11:22 | W.PN.NEPH.PH ---
Today's Communication / Plan
-
IV fluids
Assessment/Plan
-
Assessment
Hyponatremia
Nephrolithiasis
Left obstructive uropathy
Nausea vomiting
Hyperlipidemia
Plan
IV fluids
Stop Flomax
DC planning
-
-
Date of Service: March 12, 2024
CC / HPI / ROS
-
Chief Complaint:
Hyponatremia
History of Present Illness:
Sodium up to 136
Passed a stone this morning
Blood pressure stable
Review of Systems:
Chest pain or shortness of breath
Labs
-
Labs:
WBC 9.2 10^3/uL (4.8-10.8) 03/12/24 07:56
RBC 3.66 10^6/uL (4.20-5.40) L 03/12/24 07:56
Hgb 11.7 g/dL (12.0-16.0) L 03/12/24 07:56
Hct 33.5 % (37.0-47.0) L 03/12/24 07:56
Plt Count 181 10^3/uL (130-400) 03/12/24 07:56
Sodium 136 mmol/L (135-145) 03/12/24 07:56
Potassium 3.9 mmol/L (3.5-5.1) 03/12/24 07:56
Chloride 103 mmol/L (98-107) 03/12/24 07:56
Carbon Dioxide 24 mmol/L (22-30) 03/12/24 07:56
BUN 7 mg/dl (7-17) 03/12/24 07:56
Creatinine 1.0 mg/dL (0.6-1.0) 03/12/24 07:56
eGFR > 60.00 03/12/24 07:56
Glucose 109 mg/dl (70-99) H 03/12/24 07:56
Calcium 8.9 mg/dl (8.4-10.2) 03/12/24 07:56
Albumin 4.4 g/dl (3.5-5.0) 03/10/24 22:53
Physical Exam
-
Vital Signs:
Vital Signs
Temp Pulse Resp BP Pulse Ox
98.0 F 103 18 118/74 99
03/12/24 07:00 03/12/24 07:00 03/12/24 07:00 03/12/24 07:00 03/12/24 07:00
Cardiovascular:: Regular rate and rhythm
Respiratory:: Bilateral: CTA
Lung Excursion:: Normal
Abdomen:: Nontender and Soft
Bowel Sounds:: Normal
Extremity Edema:: None: Bilateral:
--- NOTE | 2024-03-12 12:52 | W.DCSUMMARY ---
Discharge Summary
Discharge Data
Date of Admission: 03/11/24
Date of Discharge: 03/12/24
-
Pending Results: Yes
Additional Pending Results:
renal stone analysis
Hospital Course
Discharging Physician : Dr. Tonya Jordan
Disposition : Home
Primary care physician : Dr. Antelmo Feliciano
Principal Discharge diagnosis : Ureteral stone; Hyponatremia
Hospital Course :
Ms. Wendi Marks is a 63 yo woman with hx significant for dyslipidemia and anxiety, recent ER visit day prior where diagnosed with ureteral stone represents with worsening pain, nausea/vomiting.
Triage vitals stable. Labs significant for Na 118. She was admitted to medicine with Urology and Nephrology consulting.
Regarding stone, patient was continued on Flomax and stone passed on its own morning of 03/12. Antibiotics stopped (urine culture without growth).
Regarding hyponatremia, patient initially started on 3% then transitioned to NS with normalization of Na prior to discharge. Urine sodium and osmol low.
She felt ready to go home.
Time spent on discharge was 32 minutes.
Important imaging findings :
CT A/P
IMPRESSION:
0.4 cm partially obstructing calculus in the proximal to mid left ureter. Small nonobstructing left renal calculi.
Procedure findings :
Discharge Plan
-
Patient Disposition: Home (Routine Discharge)
Discharge Diagnosis/Procedures: Renal Calculus, Hyponatremia
Diet: Regular
Activity: As tolerated
Driving Restrictions: As prior to admission
Referrals:
Antelmo Feliciano MD [Family Provider] - in less than 1 week
Additional Discharge Medication Instructions: Stop Cefdinir and Flomax
Prescriptions:
Continued
ondansetron 4 mg tablet,disintegrating
4 mg PO Q8H PRN (Reason: nausea and vomiting) 2 Days Qty: 6 0RF
pravastatin 40 mg Tablet
40 mg PO DAILY
escitalopram oxalate [Lexapro] 10 mg Tablet
10 mg PO DAILY
Discontinued
cefdinir 300 mg capsule
300 mg PO BID Qty: 14 0RF
tamsulosin [Flomax] 0.4 mg capsule
0.4 mg PO DAILY Qty: 14 0RF
Discharge Orders:
Discharge Patient (As Directed); Ordered 03/12/24
Ordered By: Tonya Jordan
Discharge Date and Time
Discharge Date/Time: 03/12/24 12:22
Print Language: TAJIK
== END 2024-03-12 12:22 | disposition home or self-care (01) | DRG 694 ==
LOC: 1 ACUTE 03:50
PROVIDERS: Emergency Medicine; ADMITTING PHYSICIAN Hospitalist; ATTENDING PHYSICIAN Student in an Organized Health Care Education/Training Program; CONSULT PHYSICIAN Specialist; EMERGENCY PHYSICIAN Emergency Medicine; FAMILY PHYSICIAN Family Medicine; OTHER PHYSICIAN Specialist
DX: N20.2 Calculus of kidney with calculus of ureter (principal); E87.1 Hypo-osmolality and hyponatremia; E78.5 Hyperlipidemia, unspecified; F32.A Depression, unspecified; F41.9 Anxiety disorder, unspecified; N13.9 Obstructive and reflux uropathy, unspecified; N28.1 Cyst of kidney, acquired; Z87.442 Personal history of urinary calculi
CPT/HCPCS: 80048; 80053; 81003; 83935; 84295; 84300; 84443; 85025; 85027; 93005; 96361; 96374; 96375; 99285